=== PATIENT | female | born 1980 | race Caucasian/White ===

== ENCOUNTER 2017-05-28 10:26 | Emergency (ER) | payer OTHER ==
--- NOTE | 2017-05-28 10:45 | ED.PDOC ---
History of Present Illness - General Chief Complaint: Respiratory Problem Stated Complaint: cough, congestion Time Seen by Provider: 05/28/17 10:39 Source: patient Exam Limitations: no limitations Additional Information: C/O COUGH, AND CONGESTION, SOB AND CHEST DISCOMFORT. "FEELS LIKE FULLNESS BEHIND BREASTS MAGGIE R>L. - History of Present Illness Timing/Duration: 1 week Severity: moderate Improving Factors: nothing Worsening Factors: nothing Associated Symptoms: cough Allergies/Adverse Reactions: Allergies NO KNOWN ALLERGY Allergy (Verified 05/28/17 10:37) Home Medications: Ambulatory Orders Amoxicillin & Pot Clavulanate [Augmentin] 1 tab PO BID #20 tab 05/28/17 Indomethacin 50 mg PO TID PRN #14 cap 05/28/17 Review of Systems - Review of Systems Constitutional: States: chills, fever, other - SUBJECTIVE EENTM: States: no symptoms reported Respiratory: States: cough, short of breath, other - PROD CLEAR SPUTUM, POST TUSSIVE EMESIS. Denies: wheezing Cardiology: States: other - MAGGIE DISCOMFORT. PLEURITIC PAIN R LAT CHEST WALL. . Denies: palpitations Gastrointestinal/Abdominal: States: nausea, vomiting. Denies: abdominal pain Genitourinary: States: no symptoms reported Musculoskeletal: States: no symptoms reported Skin: States: no symptoms reported Neurological: States: no symptoms reported Endocrine: States: no symptoms reported Past Medical History (General) - Patient Medical History Hx Hypertension: No Hx Diabetes: No - Social History Hx Tobacco Use: Yes Hx Alcohol Use: No Family Medical History - Family History Mother Family History: No Known Living Status: Still Living Hx Family Asthma: No Hx Family Congestive Heart Failure: No Physical Exam - Physical Exam General Appearance: Alert, No apparent distress Eye Exam: bilateral normal Ears, Nose, Throat: hearing grossly normal, normal ENT inspection Neck: full range of motion, supple, normal inspection Respiratory: lungs clear, normal breath sounds, no respiratory distress Cardiovascular/Chest: regular rate, rhythm, no murmur, other - NO TTP CHEST WALL Gastrointestinal/Abdominal: normal bowel sounds, non tender, soft, no organomegaly Back Exam: normal inspection, no CVA tenderness Extremity: normal range of motion, non-tender Neurologic: alert, normal mood/affect Skin Exam: normal color, warm/dry Lymphatic: no adenopathy Progress - Progress Progress: 05/28/17 12:27 NO RELIEF WITH TORADOL, WILL GET D DIMER 05/28/17 13:00 D DIMER NEG, WILL RX ABX SECONDARY TO DURATION, SUBJECTIVE FEVER AND PLEURISY. - EKG/XRAY/CT XRAY: chest - ISAAK Departure - Departure Clinical Impression: Pleurisy, Bronchitis Time of Disposition: 13:01 Disposition: Discharge to Home or Self Care Condition: Good Departure Forms: ED Discharge - Pt. Copy, Patient Portal Self Enrollment Instructions: Pleurisy, Acute Bronchitis Prescriptions: Amoxicillin & Pot Clavulanate [Augmentin] 1 tab PO BID #20 tab Indomethacin 50 mg PO TID PRN #14 cap PRN Reason: Pain Home Medications: Ambulatory Orders Amoxicillin & Pot Clavulanate [Augmentin] 1 tab PO BID #20 tab 05/28/17 Indomethacin 50 mg PO TID PRN #14 cap 05/28/17
[2017-05-28] MEDS ORDERED: KETOROLAC TROMETHAMINE INJ 30 MG/ML VIAL IV ONE (10:52)
[2017-05-28] MEDS ORDERED: IPRATROPIUM/ALBUTEROL 3 ML VIAL NEB ONE (10:52)
--- NOTE | 2017-05-28 11:21 | RAD ---
EXAM DESCRIPTION: Chest,2 Views CLINICAL HISTORY: cough COMPARISON: None Available. TECHNIQUE: PA/lateral FINDINGS: Cardiomediastinal silhouette and pulmonary vascularity are within normal limits. Lungs are clear without focal consolidations. Bilateral costophrenic angles are sharp. No pneumothorax. Visualized osseous structures show no destructive lesions. IMPRESSION: No radiographic evidence for acute cardiopulmonary process. Electronically signed by: Dewayne Silveira MD 05/28/2017 11:20 AM CDT
[2017-05-28] MEDS ORDERED: cefTRIAXone SODIUM 1 GM in SODIUM CHL 0.9% 50ML MIN-BAG+ 50 ML IVPB ONE (13:00)
[2017-05-28] MEDS ORDERED: SODIUM CHL 0.9% 50ML MIN-BAG+ 50 ML IVPB ONE (13:09)
[2017-05-28] MEDS ORDERED: cefTRIAXone SODIUM 1 GM VIAL ONE (13:09)
[2017-05-28 13:52] VITALS: BP 100/64; TEMP 98; O2SAT 98
== END 2017-05-28 13:51 | disposition home or self-care (01) ==
LOC: ER 10:26
DX: J40 Bronchitis, not specified as acute or chronic (principal); R09.1 Pleurisy; Z87.891 Personal history of nicotine dependence
CPT/HCPCS: 36415; 71020; 80048; 84703; 85025; 85379; 94640; J0696; J1885; J7050; J7620